=== PATIENT | female | born 1985 | race Caucasian/White ===

== ENCOUNTER 2023-04-12 22:02 | Emergency (ER) | payer SELFPAY ==
[~2023-04-12] VITALS: Ht 144.8 cm; Wt 52.2 kg
[2023-04-12 22:21] VITALS: BP 105/76; PULSE 75; RESP 17; TEMP 98.2; O2SAT 100
[2023-04-13] MEDS ORDERED: KETOROLAC 60 MG/2 ML VIAL IM ONE (00:25)
[2023-04-13] MEDS ORDERED: IBUP-2213 PO (00:37)
[2023-04-13] MEDS ORDERED: ACET-503 PO (00:37)
== END 2023-04-13 00:45 | disposition home or self-care (01) ==
LOC: MED 22:02
DX: M54.2 Cervicalgia (principal); M54.50 Low back pain, unspecified; M25.511 Pain in right shoulder; Z79.899 Other long term (current) drug therapy
CPT/HCPCS: 96372; 99283; J1885